=== PATIENT | male | born 1985 | race Caucasian/White ===

== ENCOUNTER 2016-12-01 10:19 | Emergency (ER) | payer BC ==
--- NOTE | 2016-12-01 11:09 | ED NURSING NOTES ---
Clinical Report - Nurses [facility] [address] [place] [address] 12/01/2016 10:21 Patient: AMISH LOPEZ TRIAGE Triage time 10:33. Acuity: LEVEL 5. Chief Complaint: RIGHT LOWER TOOTHACHE and SWELLING OF JAW / FACE. Alert. SEPSIS SCREEN: Sepsis Screen. Negative (no infection suspected/documented). --10:39 Noemi Abreu R.N. 10:32 12/01/16. BP: 141/101. HR: 77. RR: 20. O2 saturation: 100%. Temp: 97.5 F. Pain level now: 06/10. --10:39 Noemi Abreu R.N. Weight: 79.3 kg stated. Height/Length: 69 inches Per Patient. BMI: 25.8. --10:36 Noemi Abreu RJessicaN. Medications Amoxicillin Oral, , dental pain, started 2 days ago. --10:34 Noemi Abreu R.N. Ibuprofen Oral. --10:35 Noemi Abreu R.N. Tylenol Oral. --10:35 Noemi Abreu R.N. The following entry was struck and corrected by Noemi Abreu R.N., 10:40 (12/01/16) Reason for correction - other(correction). <<STRICKEN ENTRY-- Amoxicillin Oral. --10:34 Noemi Abreu R.N. --END STRIKE>>. Allergies No Known Drug Allergy. --10:35 Noemi Abreu R.N. History Historian: patient. Accompanied by mother. Primary physician (Sina). ( Pt went to walk in clinic and received Rx for Amoxicillin). Onset. (3 days ago). He has a dental appointment scheduled (December 09). PAST MEDICAL HX: Negative. Immunizations: status is unknown. SURGERY HX: No history of previous surgery. SOCIAL HX: Former smoker, end date 2015. Alcohol use; consumes beer occasionally. No drug use. --10:39 Noemi Abreu R.N. PROBLEMS: no known problems. ADDITIONAL SURGERIES: no known surgeries. Interventions ID band on patient. To room. --10:39 Noemi Abreu R.N. PHYSICAL ASSESSMENT 10:40 12/01/16. GENERAL / NEURO / PSYCH: Alert. Oriented X 4. Appears anxious. ( Pt holding ice pack to right lower jaw almost continuously, states it's the only thing that has helped so far. States the walk in clinic he visited did not prescribe pain medication, only antibiotics.). --10:40 Noemi Abreu R.N. NURSING PROGRESS NOTES 10:41 12/01/16. Patient identifiers checked. Call light placed in reach. Bed placed in lowest position. Brakes of bed on. Patient ready for evaluation- chart flagged. --10:41 Noemi Abreu R.N. DISPOSITION / DISCHARGE 11:19 12/01/16. Condition at departure: unchanged. No learning barriers present. Discharge instructions provided and reviewed with the patient and parent. Reviewed medication(s) information. Prescription(s) given to the patient. Reviewed referral to a dentist and family practice for followup. Verbalized understanding. Written instructions provided. The patient was discharged home and accompanied by parent. He left the Emergency Department ambulatory and via private vehicle. Parent driving. --11:20 Noemi Abreu R.N. 11:19 12/01/16. BP: 140/92. --11:20 Noemi Abreu R.N. 11:19. ( BP rechecked, as it was elevated. Pt instructed to have BP rechecked and follow up with PCP. Pt's mother at bedside.). --11:23 Noemi Abreu R.N. Locked/Released at 12/01/2016 11:23 by Noemi Abreu R.N.
--- NOTE | 2016-12-01 11:09 | ED CLINICAL REPORT ---
Clinical Report - Physicians/Mid Levels [facility] [address] [place] [address] 12/01/2016 10:21 Patient: AMISH LOPEZ Time Seen: 1050. Arrived- By private vehicle. Historian- patient. HISTORY OF PRESENT ILLNESS Chief Complaint: DENTAL PAIN. This started a little less than a week and is still present and worsening. It was abrupt in onset and has been constant but is not gone now. Pain described as moderate. The patient has had toothache. (went to a walk in clinic. was given amox. has been taking it for the past few days with a probiotic. has not helped. dental appointment scheduled for 12/09/2016). Similar symptoms previously: Many times. Recent medical care: Not recently seen/assessed. REVIEW OF SYSTEMS No nausea or vomiting. All systems otherwise negative, except as recorded above. PAST HISTORY See nurses notes. Problems: no known problems. Additional Surgeries: no known surgeries. Medications: Tylenol Oral. Ibuprofen Oral. Amoxicillin Oral, , dental pain, started 2 days ago. Allergies: No Known Drug Allergy. SOCIAL HISTORY Former smoker. Never smoker. Occasional alcohol use. No drug use. No recent travel. Is a local resident. ADDITIONAL NOTES The nursing notes have been reviewed. PHYSICAL EXAM Vital Signs: 12/01/2016 10:32 BP: 141/101. HR: 77. RR: 20. O2 saturation: 100%. Temp: 97.5 F. Pain level now: 10/10. Oxygen saturation normal. Appearance: Alert. No acute distress. Head: Normal external inspection. Eyes: Pupils equal, round and reactive to light. Conjunctivae and eyelids normal. ENT: Dental decay. Ears normal. Nose normal. Pharynx normal. Lips normal. Gums normal. No trismus present. Uvula midline. No trismus. (no brawny edema. No swelling of the tongue.). Neck: Trachea midline. No adenopathy. CVS: Normal heart rate and rhythm. Heart sounds normal. Pulses normal. Respiratory: No respiratory distress. Breath sounds normal. Chest nontender. Abdomen: Soft and nontender. No organomegaly. PROGRESS AND PROCEDURES Course of Care: The patient is a pleasant 31 yo male presenting for evaluation of dental pain. Patient has been evaluated for retropharyngeal abscess, Ludwigs angina, acute necrotizing ulcerative gingivitis, and peritonsillar abscess. The exam findings are not consistent with any of these etiologies. Evidence for dental pain noted on examination. No concern for airway compromise at this time. Patient appears nontoxic. Vital signs are otherwise unremarkable. Do not feel patient is septic at this time. Patient be managed conservatively at this time with antibiotics and nonsteroidal anti-inflammatory medications as tolerated. Patient be instructed to avoid nonsteroidal anti-inflammatory medications if theyre allergic or have intolerances. Did not feel patient needs to be admitted to the hospital or require further emergency department workup/evaluation. Encouraged patient to follow up with the dentist as soon as possible ideally within the next 2 or 3 days. Has appointment tomorrow which she is encouraged to keep. Reviewed risks and benefits of the procedure. Patient has been reevaluated. No evidence of airway compromise. Patient continues to be nontoxic and in no acute distress. I discussed the patient workup, diagnosis, home care, follow-up, and return precautions. All questions answered. The patient expressed understanding of these instructions and was agreeable to them. CLINICAL IMPRESSION 12/01/2016 10:32 BP: 141/101. HR: 77. RR: 20. O2 saturation: 100%. Temp: 97.5 F. Pain level now: 10/10. Hypertensive. Oxygen saturation normal. Dental caries (extensive decay) (acute right mandibular molars). acute right sided facial pain. INSTRUCTIONS (May also use chlorhexidine mouthwash over the counter. Follow package instruction.). Warnings: GENERAL WARNINGS: Return or contact your physician immediately if your condition worsens or changes unexpectedly, if not improving as expected, or if other problems arise. Specifically return if pain, vomiting, bleeding, breathing difficulty or fever. increasing swelling. Your Current Medications: CONTINUE TAKING THE FOLLOWING MEDICATIONS: Amoxicillin Oral : dental pain, started 2 days ago. Ibuprofen Oral. Tylenol Oral. Prescription Medications: [place] 5 mg / 325 mg tablets: take 1 orally every 6 hours as needed for pain. Dispense twelve (12). No refill. Substitution is permissible. Clindamycin every 8 hours for 10 days. No refill. (450 mg PO. Disp suff quant. Substitution allowed.) Follow-up: Return to the emergency department as needed. Follow up with your doctor in three days. Reason for referral: recheck today's concerns. Summary of care provided to patient via paper. Screening today revealed the patient's blood pressure to be in the normal range. The patient should follow up with a primary care provider for blood pressure management. Understanding of the discharge instructions verbalized by patient. (Electronically signed by Doug Dodson Dr. 12/01/2016 11:09)
--- NOTE | 2016-12-01 11:24 | ED DISCHARGE INSTRUCTIONS ---
Patient: AMISH LOPEZ General Instructions [facility] VisitID: [id number] [place] [address] 31y, M Registration Date/Time: 12/01/2016 12/01/2016 10:32 BP: 141/101. HR: 77. RR: 20. O2 saturation: 100%. Temp: 97.5 F. Pain level now: 06/10. Hypertensive. Oxygen saturation normal. Dental caries (extensive decay) (acute right mandibular molars). acute right sided facial pain. INSTRUCTIONS (May also use chlorhexidine mouthwash over the counter. Follow package instruction.). Warnings: GENERAL WARNINGS: Return or contact your physician immediately if your condition worsens or changes unexpectedly, if not improving as expected, or if other problems arise. Specifically return if pain, vomiting, bleeding, breathing difficulty or fever. increasing swelling. Your Current Medications: CONTINUE TAKING THE FOLLOWING MEDICATIONS: Amoxicillin Oral : dental pain, started 2 days ago. Ibuprofen Oral. Tylenol Oral. Prescription Medications: [place] 5 mg / 325 mg tablets: take 1 orally every 6 hours as needed for pain. Dispense twelve (12). No refill. Substitution is permissible. Clindamycin every 8 hours for 10 days. No refill. (450 mg PO. Disp suff quant. Substitution allowed.) Follow-up: Return to the emergency department as needed. Follow up with your doctor in three days. Reason for referral: recheck today's concerns. Summary of care provided to patient via paper. Screening today revealed the patient's blood pressure to be in the normal range. The patient should follow up with a primary care provider for blood pressure management. Understanding of the discharge instructions verbalized by patient. ADDITIONAL INFORMATION Dental Cavity A dental cavity is a pit or crater in the enamel surface of the tooth. This exposes the sensitive inner layer of the tooth and causes pain. If untreated, the cavity will get bigger and may cause an infection or abscess in the root of the tooth. An infection in the tooth is a much more serious problem and may require a root canal or removal of the entire tooth. The tooth pain may be made worse by drinking hot or cold fluids. It may spread from the tooth to the ear or jaw on the same side. Home Care: Avoid hot and cold foods, and liquids since your tooth may be sensitive to temperature changes. If your tooth is chipped or cracked, or if there is a large open cavity, apply OIL OF CLOVES (available fhee-rzg-ylqgany in drug stores) directly to the tooth to reduce pain. Some pharmacies carry an kpxj-lio-dlaqpzb "toothache kit." This contains oil of cloves and a paste, which can be applied over the exposed tooth to decrease sensitivity. An ice pack on your jaw over the sore area may help to reduce pain. You may use acetaminophen (Tylenol) or ibuprofen (Motrin, Advil) to control pain, unless another pain medicine was prescribed. [ NOTE: If you have liver disease or ever had a stomach ulcer, talk with your doctor before using these medicines.] If you have signs of an infection, an antibiotic will be given. Take it as directed. Follow-Up with your dentist as directed. Although your pain may go away with the treatment given, only a dentist can fully evaluate and treat this problem to prevent further tooth damage. Get Prompt Medical Attention if any of the following occur: Redness or swelling of the face Pain worsens or spreads to the neck Fever over 100.5 F (38C) Unusual drowsiness; headache or stiff neck; weakness or fainting Pus drains from the tooth or gum Difficulty swallowing or breathing Dental Pain A crack or cavity in the tooth, which exposes the sensitive inner area of the tooth can cause tooth pain. An infection in the gum or the root of the tooth can cause pain and swelling. The pain is often made worse by drinking hot or cold fluids, or biting on hard foods. Pain may spread from the tooth to the ear or jaw on the same side. Home Care: Avoid hot and cold foods and liquids since your tooth may be sensitive to temperature changes. If your tooth is chipped or cracked, or if there is a large open cavity, apply OIL OF CLOVES (available zkzx-gfn-ipuymmp in drug stores) directly to the tooth to reduce pain. Some pharmacies carry an fxdt-brk-ksqifzo "toothache kit." This contains a paste, which can be applied over the exposed tooth to decrease sensitivity. A cold pack on your jaw over the sore area may help reduce pain. You may use acetaminophen (Tylenol) or ibuprofen (Motrin, Advil) to control pain, unless another medicine was prescribed. [ NOTE: If you have chronic liver or kidney disease or ever had a stomach ulcer or GI bleeding, talk with your doctor before using these medicines.] If you have signs of an infection, an antibiotic will be given. Take it as directed. Follow-Up as directed with a dentist. Your pain may go away with the treatment given. However, only a dentist can fully evaluate and treat the cause and prevent the pain from coming back again. TOOTHACHE IS A SIGN OF DISEASE IN YOUR TOOTH AND SHOULD BE EXAMINED AND TREATED BY A DENTIST. Get Prompt Medical Attention if any of the following occur: Your face becomes swollen or red Pain worsens or spreads to the neck Fever over 100.4 F (38.0 C) Unusual drowsiness; headache or stiff neck; weakness or fainting Pus drains from the tooth Difficulty swallowing or breathing Hydrocodone Bitartrate, Acetaminophen Oral tablet What is this medicine? ACETAMINOPHEN; HYDROCODONE (a set a JAYDEN jo ann fen; francis droe KOE done) is a pain reliever. It is used to treat mild to moderate pain. How should I use this medicine? Take this medicine by mouth. Swallow it with a full glass of water. Follow the directions on the prescription label. If the medicine upsets your stomach, take the medicine with food or milk. Do not take more than you are told to take. Talk to your automobiles salesperson regarding the use of this medicine in children. This medicine is not approved for use in children. What side effects may I notice from receiving this medicine? Side effects that you should report to your doctor or health healthcare business analyst as soon as possible: allergic reactions like skin rash, itching or hives, swelling of the face, lips, or tongue breathing problems confusion feeling faint or lightheaded, falls stomach pain yellowing of the eyes or skin Side effects that usually do not require medical attention (report to your doctor or health healthcare business analyst if they continue or are bothersome): nausea, vomiting stomach upset What may interact with this medicine? alcohol antihistamines isoniazid medicines for depression, anxiety, or psychotic disturbances medicines for sleep muscle relaxants naltrexone narcotic medicines (opiates) for pain phenobarbital ritonavir tramadol What if I miss a dose? If you miss a dose, take it as soon as you can. If it is almost time for your next dose, take only that dose. Do not take double or extra doses. Where should I keep my medicine? Keep out of the reach of children. This medicine can be abused. Keep your medicine in a safe place to protect it from theft. Do not share this medicine with anyone. Selling or giving away this medicine is dangerous and against the law. Store at room temperature between 15 and 30 degrees C (59 and 86 degrees F). Protect from light. Keep container tightly closed. Throw away any unused medicine after the expiration date. Discard unused medicine and used packaging carefully. Pets and children can be harmed if they find used or lost packages. What should I tell my health care provider before I take this medicine? They need to know if you have any of these conditions: brain tumor Crohn's disease, inflammatory bowel disease, or ulcerative colitis drink more than 3 alcohol-containing drinks per day drug abuse or addiction head injury heart or circulation problems kidney disease or problems going to the bathroom liver disease lung disease, asthma, or breathing problems an unusual or allergic reaction to acetaminophen, hydrocodone, other opioid analgesics, other medicines, foods, dyes, or preservatives or trying to get breast-feeding What should I watch for while using this medicine? Tell your doctor or health healthcare business analyst if your pain does not go away, if it gets worse, or if you have new or a different type of pain. You may develop tolerance to the medicine. Tolerance means that you will need a higher dose of the medicine for pain relief. Tolerance is normal and is expected if you take the medicine for a long time. Do not suddenly stop taking your medicine because you may develop a severe reaction. Your body becomes used to the medicine. This does NOT mean you are addicted. Addiction is a behavior related to getting and using a drug for a non-medical reason. If you have pain, you have a medical reason to take pain medicine. Your doctor will tell you how much medicine to take. If your doctor wants you to stop the medicine, the dose will be slowly lowered over time to avoid any side effects. You may get drowsy or dizzy when you first start taking the medicine or change doses. Do not drive, use machinery, or do anything that may be dangerous until you know how the medicine affects you. Stand or sit up slowly. There are different types of narcotic medicines (opiates) for pain. If you take more than one type at the same time, you may have more side effects. Give your health care provider a list of all medicines you use. Your doctor will tell you how much medicine to take. Do not take more medicine than directed. Call emergency for help if you have problems breathing. The medicine will cause constipation. Try to have a bowel movement at least every 2 to 3 days. If you do not have a bowel movement for 3 days, call your doctor or health healthcare business analyst. Too much acetaminophen can be very dangerous. Do not take Tylenol (acetaminophen) or medicines that contain acetaminophen with this medicine. Many non-prescription medicines contain acetaminophen. Always read the labels carefully. Clindamycin Hydrochloride Oral capsule What is this medicine? CLINDAMYCIN (KLIN ange martinez) is a lincosamide antibiotic. It is used to treat certain kinds of bacterial infections. It will not work for colds, flu, or other viral infections. How should I use this medicine? Take this medicine by mouth with a full glass of water. Follow the directions on the prescription label. You can take this medicine with food or on an empty stomach. If the medicine upsets your stomach, take it with food. Take your medicine at regular intervals. Do not take your medicine more often than directed. Take all of your medicine as directed even if you think your are better. Do not skip doses or stop your medicine early. Talk to your automobiles salesperson regarding the use of this medicine in children. Special care may be needed. What side effects may I notice from receiving this medicine? Side effects that you should report to your doctor or health healthcare business analyst as soon as possible: allergic reactions like skin rash, itching or hives, swelling of the face, lips, or tongue dark urine pain on swallowing redness, blistering, peeling or loosening of the skin, including inside the mouth unusual bleeding or bruising unusually weak or tired yellowing of eyes or skin Side effects that usually do not require medical attention (report to your doctor or health healthcare business analyst if they continue or are bothersome): diarrhea itching in the rectal or genital area joint pain nausea, vomiting stomach pain What may interact with this medicine? chloramphenicol erythromycin kaolin products What if I miss a dose? If you miss a dose, take it as soon as you can. If it is almost time for your next dose, take only that dose. Do not take double or extra doses. Where should I keep my medicine? Keep out of the reach of children. Store at room temperature between 20 and 25 degrees C (68 and 77 degrees F). Throw away any unused medicine after the expiration date. What should I tell my health care provider before I take this medicine? They need to know if you have any of these conditions: kidney disease liver disease stomach problems like colitis an unusual or allergic reaction to clindamycin, lincomycin, or other medicines, foods, dyes like tartrazine or preservatives or trying to get breast-feeding What should I watch for while using this medicine? Tell your doctor or healthcare professional if your symptoms do not start to get better or if they get worse. Do not treat diarrhea with over the counter products. Contact your doctor if you have diarrhea that lasts more than 2 days or if it is severe and watery. You have been given the following additional information: Dental Cavity Dental Pain Hydrocodone Bitartrate, Acetaminophen Oral tablet Clindamycin Hydrochloride Oral capsule (Electronically signed by Doug Dodson Dr. 12/01/2016 11:09)
--- NOTE | 2016-12-01 11:24 | ED MED RECONCILIATION SUMMARY ---
Patient: AMISH LOPEZ Medication Reconciliation Report [facility] VisitID: [id number] [address] [place] [address] 31y, M Registration Date/Time: 12/01/2016 Weight: 79.3 kg Height/Length: 69 in. BMI: 25.8 ALLERGIES: No Known Drug Allergy The patient's Home Medications are listed below: CONTINUE TAKING THE FOLLOWING MEDICATIONS: Amoxicillin Oral, dental pain, started 2 days ago Ibuprofen Oral Tylenol Oral The source(s) of the original Home Medication information: Not obtained. The following Medications were given to the patient in the Emergency Department: None. The following Medications were prescribed to the patient: [place] 5 mg / 325 mg tablets: take 1 orally every 6 hours as needed for pain. Dispense twelve (12). No refill. Substitution is permissible. -- Doug Dodson Dr. Clindamycin every 8 hours for 10 days. No refill.(450 mg PO. Disp suff quant. Substitution allowed.) -- Doug Dodson Dr.
--- NOTE | 2016-12-01 11:24 | ED MED RECONCILIATION SUMMARY ---
Patient: AMISH LOPEZ Medication Reconciliation Report [facility] VisitID: [id number] [address] [place] [address] 31y, M Registration Date/Time: 12/01/2016 Weight: 79.3 kg Height/Length: 69 in. BMI: 25.8 ALLERGIES: No Known Drug Allergy The patient's Home Medications are listed below: CONTINUE TAKING THE FOLLOWING MEDICATIONS: Amoxicillin Oral, dental pain, started 2 days ago Ibuprofen Oral Tylenol Oral The source(s) of the original Home Medication information: Not obtained. The following Medications were given to the patient in the Emergency Department: None. The following Medications were prescribed to the patient: [place] 5 mg / 325 mg tablets: take 1 orally every 6 hours as needed for pain. Dispense twelve (12). No refill. Substitution is permissible. -- Doug Dodson Dr. Clindamycin every 8 hours for 10 days. No refill.(450 mg PO. Disp suff quant. Substitution allowed.) -- Doug Dodson Dr.
--- NOTE | 2016-12-01 11:24 | ED DISCHARGE INSTRUCTIONS ---
Patient: AMISH LOPEZ General Instructions [facility] VisitID: [id number] [place] [address] 31y, M Registration Date/Time: 12/01/2016 12/01/2016 10:32 BP: 141/101. HR: 77. RR: 20. O2 saturation: 100%. Temp: 97.5 F. Pain level now: 06/10. Hypertensive. Oxygen saturation normal. Dental caries (extensive decay) (acute right mandibular molars). acute right sided facial pain. INSTRUCTIONS (May also use chlorhexidine mouthwash over the counter. Follow package instruction.). Warnings: GENERAL WARNINGS: Return or contact your physician immediately if your condition worsens or changes unexpectedly, if not improving as expected, or if other problems arise. Specifically return if pain, vomiting, bleeding, breathing difficulty or fever. increasing swelling. Your Current Medications: CONTINUE TAKING THE FOLLOWING MEDICATIONS: Amoxicillin Oral : dental pain, started 2 days ago. Ibuprofen Oral. Tylenol Oral. Prescription Medications: Marshall 5 mg / 325 mg tablets: take 1 orally every 6 hours as needed for pain. Dispense twelve (12). No refill. Substitution is permissible. Clindamycin every 8 hours for 10 days. No refill. (450 mg PO. Disp suff quant. Substitution allowed.) Follow-up: Return to the emergency department as needed. Follow up with your doctor in three days. Reason for referral: recheck today's concerns. Summary of care provided to patient via paper. Screening today revealed the patient's blood pressure to be in the normal range. The patient should follow up with a primary care provider for blood pressure management. Understanding of the discharge instructions verbalized by patient. ADDITIONAL INFORMATION Dental Cavity A dental cavity is a pit or crater in the enamel surface of the tooth. This exposes the sensitive inner layer of the tooth and causes pain. If untreated, the cavity will get bigger and may cause an infection or abscess in the root of the tooth. An infection in the tooth is a much more serious problem and may require a root canal or removal of the entire tooth. The tooth pain may be made worse by drinking hot or cold fluids. It may spread from the tooth to the ear or jaw on the same side. Home Care: Avoid hot and cold foods, and liquids since your tooth may be sensitive to temperature changes. If your tooth is chipped or cracked, or if there is a large open cavity, apply OIL OF CLOVES (available xhzz-txn-vzfgbzq in drug stores) directly to the tooth to reduce pain. Some pharmacies carry an psww-lvc-bfjmpsl "toothache kit." This contains oil of cloves and a paste, which can be applied over the exposed tooth to decrease sensitivity. An ice pack on your jaw over the sore area may help to reduce pain. You may use acetaminophen (Tylenol) or ibuprofen (Motrin, Advil) to control pain, unless another pain medicine was prescribed. [ NOTE: If you have liver disease or ever had a stomach ulcer, talk with your doctor before using these medicines.] If you have signs of an infection, an antibiotic will be given. Take it as directed. Follow-Up with your dentist as directed. Although your pain may go away with the treatment given, only a dentist can fully evaluate and treat this problem to prevent further tooth damage. Get Prompt Medical Attention if any of the following occur: Redness or swelling of the face Pain worsens or spreads to the neck Fever over 100.5 F (38C) Unusual drowsiness; headache or stiff neck; weakness or fainting Pus drains from the tooth or gum Difficulty swallowing or breathing Dental Pain A crack or cavity in the tooth, which exposes the sensitive inner area of the tooth can cause tooth pain. An infection in the gum or the root of the tooth can cause pain and swelling. The pain is often made worse by drinking hot or cold fluids, or biting on hard foods. Pain may spread from the tooth to the ear or jaw on the same side. Home Care: Avoid hot and cold foods and liquids since your tooth may be sensitive to temperature changes. If your tooth is chipped or cracked, or if there is a large open cavity, apply OIL OF CLOVES (available gmfi-ssj-cbbpguq in drug stores) directly to the tooth to reduce pain. Some pharmacies carry an vqrq-wil-atvizjd "toothache kit." This contains a paste, which can be applied over the exposed tooth to decrease sensitivity. A cold pack on your jaw over the sore area may help reduce pain. You may use acetaminophen (Tylenol) or ibuprofen (Motrin, Advil) to control pain, unless another medicine was prescribed. [ NOTE: If you have chronic liver or kidney disease or ever had a stomach ulcer or GI bleeding, talk with your doctor before using these medicines.] If you have signs of an infection, an antibiotic will be given. Take it as directed. Follow-Up as directed with a dentist. Your pain may go away with the treatment given. However, only a dentist can fully evaluate and treat the cause and prevent the pain from coming back again. TOOTHACHE IS A SIGN OF DISEASE IN YOUR TOOTH AND SHOULD BE EXAMINED AND TREATED BY A DENTIST. Get Prompt Medical Attention if any of the following occur: Your face becomes swollen or red Pain worsens or spreads to the neck Fever over 100.4 F (38.0 C) Unusual drowsiness; headache or stiff neck; weakness or fainting Pus drains from the tooth Difficulty swallowing or breathing Hydrocodone Bitartrate, Acetaminophen Oral tablet What is this medicine? ACETAMINOPHEN; HYDROCODONE (a set a JAYDEN jo ann fen; francis droe KOE done) is a pain reliever. It is used to treat mild to moderate pain. How should I use this medicine? Take this medicine by mouth. Swallow it with a full glass of water. Follow the directions on the prescription label. If the medicine upsets your stomach, take the medicine with food or milk. Do not take more than you are told to take. Talk to your field ring assembler regarding the use of this medicine in children. This medicine is not approved for use in children. What side effects may I notice from receiving this medicine? Side effects that you should report to your doctor or health managed care specialist as soon as possible: allergic reactions like skin rash, itching or hives, swelling of the face, lips, or tongue breathing problems confusion feeling faint or lightheaded, falls stomach pain yellowing of the eyes or skin Side effects that usually do not require medical attention (report to your doctor or health managed care specialist if they continue or are bothersome): nausea, vomiting stomach upset What may interact with this medicine? alcohol antihistamines isoniazid medicines for depression, anxiety, or psychotic disturbances medicines for sleep muscle relaxants naltrexone narcotic medicines (opiates) for pain phenobarbital ritonavir tramadol What if I miss a dose? If you miss a dose, take it as soon as you can. If it is almost time for your next dose, take only that dose. Do not take double or extra doses. Where should I keep my medicine? Keep out of the reach of children. This medicine can be abused. Keep your medicine in a safe place to protect it from theft. Do not share this medicine with anyone. Selling or giving away this medicine is dangerous and against the law. Store at room temperature between 15 and 30 degrees C (59 and 86 degrees F). Protect from light. Keep container tightly closed. Throw away any unused medicine after the expiration date. Discard unused medicine and used packaging carefully. Pets and children can be harmed if they find used or lost packages. What should I tell my health care provider before I take this medicine? They need to know if you have any of these conditions: brain tumor Crohn's disease, inflammatory bowel disease, or ulcerative colitis drink more than 3 alcohol-containing drinks per day drug abuse or addiction head injury heart or circulation problems kidney disease or problems going to the bathroom liver disease lung disease, asthma, or breathing problems an unusual or allergic reaction to acetaminophen, hydrocodone, other opioid analgesics, other medicines, foods, dyes, or preservatives or trying to get breast-feeding What should I watch for while using this medicine? Tell your doctor or health managed care specialist if your pain does not go away, if it gets worse, or if you have new or a different type of pain. You may develop tolerance to the medicine. Tolerance means that you will need a higher dose of the medicine for pain relief. Tolerance is normal and is expected if you take the medicine for a long time. Do not suddenly stop taking your medicine because you may develop a severe reaction. Your body becomes used to the medicine. This does NOT mean you are addicted. Addiction is a behavior related to getting and using a drug for a non-medical reason. If you have pain, you have a medical reason to take pain medicine. Your doctor will tell you how much medicine to take. If your doctor wants you to stop the medicine, the dose will be slowly lowered over time to avoid any side effects. You may get drowsy or dizzy when you first start taking the medicine or change doses. Do not drive, use machinery, or do anything that may be dangerous until you know how the medicine affects you. Stand or sit up slowly. There are different types of narcotic medicines (opiates) for pain. If you take more than one type at the same time, you may have more side effects. Give your health care provider a list of all medicines you use. Your doctor will tell you how much medicine to take. Do not take more medicine than directed. Call emergency for help if you have problems breathing. The medicine will cause constipation. Try to have a bowel movement at least every 2 to 3 days. If you do not have a bowel movement for 3 days, call your doctor or health managed care specialist. Too much acetaminophen can be very dangerous. Do not take Tylenol (acetaminophen) or medicines that contain acetaminophen with this medicine. Many non-prescription medicines contain acetaminophen. Always read the labels carefully. Clindamycin Hydrochloride Oral capsule What is this medicine? CLINDAMYCIN (KLIN ange martinez) is a lincosamide antibiotic. It is used to treat certain kinds of bacterial infections. It will not work for colds, flu, or other viral infections. How should I use this medicine? Take this medicine by mouth with a full glass of water. Follow the directions on the prescription label. You can take this medicine with food or on an empty stomach. If the medicine upsets your stomach, take it with food. Take your medicine at regular intervals. Do not take your medicine more often than directed. Take all of your medicine as directed even if you think your are better. Do not skip doses or stop your medicine early. Talk to your field ring assembler regarding the use of this medicine in children. Special care may be needed. What side effects may I notice from receiving this medicine? Side effects that you should report to your doctor or health managed care specialist as soon as possible: allergic reactions like skin rash, itching or hives, swelling of the face, lips, or tongue dark urine pain on swallowing redness, blistering, peeling or loosening of the skin, including inside the mouth unusual bleeding or bruising unusually weak or tired yellowing of eyes or skin Side effects that usually do not require medical attention (report to your doctor or health managed care specialist if they continue or are bothersome): diarrhea itching in the rectal or genital area joint pain nausea, vomiting stomach pain What may interact with this medicine? chloramphenicol erythromycin kaolin products What if I miss a dose? If you miss a dose, take it as soon as you can. If it is almost time for your next dose, take only that dose. Do not take double or extra doses. Where should I keep my medicine? Keep out of the reach of children. Store at room temperature between 20 and 25 degrees C (68 and 77 degrees F). Throw away any unused medicine after the expiration date. What should I tell my health care provider before I take this medicine? They need to know if you have any of these conditions: kidney disease liver disease stomach problems like colitis an unusual or allergic reaction to clindamycin, lincomycin, or other medicines, foods, dyes like tartrazine or preservatives or trying to get breast-feeding What should I watch for while using this medicine? Tell your doctor or healthcare professional if your symptoms do not start to get better or if they get worse. Do not treat diarrhea with over the counter products. Contact your doctor if you have diarrhea that lasts more than 2 days or if it is severe and watery. You have been given the following additional information: Dental Cavity Dental Pain Hydrocodone Bitartrate, Acetaminophen Oral tablet Clindamycin Hydrochloride Oral capsule (Electronically signed by Doug Dodson Dr. 12/01/2016 11:09)
--- NOTE | 2016-12-01 11:24 | ED MAR SUMMARY ---
..... Medication Administration Record [facility] [address] [place], [place] [id number] Patient: AMISH LOPEZ Visit ID: [id number] 31y, M Weight: 79.3 kg Height/Length: 69 in BMI: 25.8 ALLERGIES: No Known Drug Allergy
--- NOTE | 2016-12-01 11:24 | ED MAR SUMMARY ---
..... Medication Administration Record [facility] [address], [place] [id number] Patient: AMISH LOPEZ Visit ID: [id number] 31y, M Weight: 79.3 kg Height/Length: 69 in BMI: 25.8 ALLERGIES: No Known Drug Allergy
== END 2016-12-01 11:18 | disposition home or self-care (01) ==
LOC: ED SRH 10:19
DX: K02.9 Dental caries, unspecified (principal); R51 Headache; Z87.891 Personal history of nicotine dependence